=== PATIENT | male | born 1995 | race Caucasian/White ===

== ENCOUNTER 2017-07-22 00:40 | Emergency (ER) | payer BC ==
[~2017-07-22] VITALS: Ht 175.3 cm; Wt 102.9 kg
[~2017-07-22 00:40] MED LIST: LEVO88TA PO; LEVO88TA3 PO; MULTTAB58 PO
[2017-07-22 00:43] VITALS: TEMP 36.8; Ht 175.3 cm; Wt 102.9 kg
--- NOTE | 2017-07-22 01:11 | EMERGENCY ROOM VISIT NOTE ---
History Report prepared by Jordana: Sushila Armstrong Under the Supervision of: Dr. Ashley Lopez D.O. First contact with patient: 00:47 Chief Complaint: CARDIAC ASSESSMENT Stated Complaint: CHEST DISCOMFORT,ELEVATED RESTING HR,FATIGUE History of Present Illness The patient is a 21 year old male who presents to the Emergency Room with complaints of intermittent chest pain for two weeks. He describes the pain as more of a discomfort. He states the discomfort occurs after he eats and has been more often than normal over the last two weeks. He denies any abdominal pain. He notes his resting heart rate was 111 bpm this evening. He ate [employer] for dinner. He notes that he felt increased warmth and needed to go outside for fresh air. He denies any acid reflux, though he reports increased belching. He notes that he has had heartburn once at the beginning of the semester. He takes medication for hypothyroidism. He regularly follows up with an film composer. He has a history of hypertension. He notes that he has a family history of HLD and CAD. He notes that his diet has been really poor. He notes that he has increased stressed with school. He states that he has gained ten pounds this semester. Source of History: patient Onset: two weeks Position: chest Quality: other (discomfort) Timing: intermittent Associated Symptoms: No abdominal pain Note: He notes increased resting heart rate and belching. He notes increased stress and weight gain. Review of Systems See HPI for pertinent positives & negatives. A total of 10 systems reviewed and were otherwise negative. 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 (2) Hypothyroidism (3) Superficial abrasion Surgical Problems: (1) History of appendectomy (2) History of tonsillectomy (3) History of wisdom tooth extraction Family History Diabetes mellitus FH: hyperlipidemia Heart disease Hypertension Social History Smoking Status: Never Smoker Smokeless Tobacco Use: No Alcohol Use: occasionally (4/week) Drug Use: none Marital Status: single Housing Status: lives alone Occupation Status: employed, [employer] student Current/Historical Medications Scheduled Levothyroxine Sodium (Levothyroxine Sodium), 88 MCG PO QPM Allergies Coded Allergies: No Known Allergies (Unverified , 07/22/17) Physical Exam Vital Signs Date Time Temp Pulse Resp B/P (MAP) Pulse Ox O2 Delivery O2 Flow Rate FiO2 07/22/17 02:09 84 18 140/82 100 Room Air 07/22/17 01:01 99 Room Air 07/22/17 00:54 102 07/22/17 00:43 36.8 125 20 142/87 99 Room Air Physical Exam HEENT: Head - normocephalic and atraumatic Pupils are equal, round, and reactive to light. Extraocular eye muscles are intact, and sclera are anicteric. Nose - moist nasal mucosa without discharge. Mouth - moist buccal mucosa. Oropharynx is nonerythematous and there is no tonsillar exudate or edema noted. Neck: Supple; no JVD, nuchal rigidity, cervical lymphadenopathy. Heart: Regular rate and rhythm. There is a normal S1 and S2 with no murmurs, clicks, or gallops appreciated. Lungs: Clear to auscultation bilaterally with no wheezes, rales, or rhonchi. Abdomen: Soft, completely nontender, nondistended, with good bowel sounds. There are no palpable pulsatile masses or hepatosplenomegaly. There is no guarding, rigidity, or rebound noted. Extremities: No evidence of cyanosis, clubbing, or edema. There are easily palpable peripheral pulses. Skin: warm and dry with good turgor and no rashes. Medical Decision & Procedures ER Provider Diagnostic Interpretation: Radiology results as stated below per my review and interpretation: CHEST XR: Portable. No cardiomegaly. No pulmonary infiltrates. Laboratory Results 07/22/17 01:00 07/22/17 01:00 Test 07/22/17 01:00 Red Blood Count 4.99 M/uL (4.7-6.1) Mean Corpuscular Volume 84.0 fL (80-100) Mean Corpuscular Hemoglobin 30.7 pg (25-34) Mean Corpuscular Hemoglobin Concent 36.5 g/dl (32-36) RDW Standard Deviation 37.8 fL (36.4-46.3) RDW Coefficient of Variation 12.5 % (11.5-14.5) Mean Platelet Volume 9.4 fL (7.4-10.4) Anion Gap 4.0 mmol/L (3-11) Est Creatinine Clear Calc Drug Dose 115.1 ml/min Estimated GFR () 100.2 Estimated GFR (Non- 86.5 BUN/Creatinine Ratio 14.4 (10-20) Calcium Level 9.2 mg/dl (8.5-10.1) Total Bilirubin 0.4 mg/dl (0.2-1) Direct Bilirubin 0.1 mg/dl (0-0.2) Aspartate Amino Transf (AST/SGOT) 29 U/L (15-37) Alanine Aminotransferase (ALT/SGPT) 61 U/L (12-78) Alkaline Phosphatase 62 U/L (45-117) Troponin I < 0.015 ng/ml (0-0.045) Total Protein 7.7 gm/dl (6.4-8.2) Albumin 4.4 gm/dl (3.4-5.0) Lipase 193 U/L (73-393) Thyroid Stimulating Hormone (TSH) 5.630 uIu/ml (0.300-4.500) Free Thyroxine 0.97 ng/dl (0.80-1.60) Free Triiodothyronine 3.25 pg/ml (2.30-4.20) Laboratory results per my review. ECG Per My Interpretation Indication: chest pain Rate (beats per minute): 94 Rhythm: normal sinus Findings: nonspecific-ST abn, no acute ischemic change, no ectopy ED Course 0056: Past medical records reviewed. The patient was evaluated in room A3. A complete history and physical exam was performed. A 12-lead EKG was obtained. An IV lock was initiated and labs are drawn as above. Patient had a chest x- ray as described above. 0236: I reassessed the patient at this time. He is feeling better and resting comfortably. I discussed the results and treatment plan with the patient. I answered all pertaining questions that he had. He expressed understanding and verbalized agreement. The patient will be discharged home. Medical Decision The patient is a 21 year old male who presents to the ED with chest pain. Differential diagnosis includes gastritis, GERD, hyperthyroidism, esophagitis, anxiety, and cardiac ischemia. Lab results showed: No Leukocytosis. Stable H&H. TSH elevated at 5.6. Free T4 0.9, Free T3 3.2; Normal lipase. Normal LFTs. Normal renal function. Normal Glucose. Negative Troponin This is a 21-year-old male patient presents to the emergency department with discomfort in his chest after eating. This is been ongoing for some time. The episodes do not seem to be exercise-induced but always seem to occur after eating. The patient does take Synthroid. Because of the fatigue and weight gain, I checked the patient's TSH, free T3, and free T4. The TSH is elevated but the others are normal. I suggested the patient follow-up with his film composer to adjust his Synthroid dosing. The patient was encouraged to take a bland diet and use Zantac twice a day. If the chest discomfort persists, he will need to have close follow-up with his PCP. Medication Reconcilliation Current Medication List: was personally reviewed by me Blood Pressure Screening Patient's blood pressure: Elevated blood pressure Blood pressure disposition: Referred to PCP Impression Primary Impression: Atypical chest pain Additional Impression: Hypothyroidism Scribe Attestation The scribe's documentation has been prepared under my direction and personally reviewed by me in its entirety. I confirm that the note above accurately reflects all work, treatment, procedures, and medical decision making performed by me. Departure Information Dispostion Home / Self-Care Referrals No Doctor, Assigned (PCP) Forms IMPORTANT VISIT INFORMATION Patient Instructions ED Chest Pain Atypical Unkn Cause, ED Chest Pain NonCardiac, GERD, GERD Lifestyle Changes, My [facility] Additional Instructions Rest. Take a bland diet Zantac - 150mg every 12 hours Follow up with film composer - TSH 5.630 (normal free T3 and free T4) Return to the ER for any worsening symptoms Problem Qualifiers Additional Impression: Hypothyroidism Hypothyroidism type: unspecified Qualified Codes: E03.9 - Hypothyroidism, unspecified
[2017-07-22 01:17] LABS: HEMATOCRIT 41.9 % (42-52); HEMOGLOBIN 15.3 g/dL (14.0-18.0); MEAN CORPUSCULAR HEMOGLOBIN 30.7 pg (25-34); MEAN CORPUSCULAR HGB CONC 36.5 g/dl (32-36); MEAN PLATELET VOLUME 9.4 fL (7.4-10.4); PLATELET COUNT 252 K/uL (130-400); RED CELL DISTRIBUTION WIDTH CV 12.5 % (11.5-14.5); RED CELL DISTRIBUTION WIDTH SD 37.8 fL (36.4-46.3); WHITE BLOOD COUNT 10.77 K/uL (4.8-10.8)
[2017-07-22 01:44] LABS: ALBUMIN 4.4 gm/dl (3.4-5.0); ALT/SGPT 61 U/L (12-78); AST/SGOT 29 U/L (15-37); BLOOD UREA NITROGEN 17 mg/dl (7-18); CALCIUM 9.2 mg/dl (8.5-10.1); CARBON DIOXIDE 28 mmol/L (21-32); CREATININE 1.18 mg/dl (0.60-1.40); GLUCOSE 88 mg/dl (70-99); LIPASE 193 U/L (73-393); POTASSIUM 3.7 mmol/L (3.5-5.1); SODIUM 138 mmol/L (136-145)
[2017-07-22 01:55] LABS: ALKALINE PHOSPHATASE 62 U/L (45-117); TOTAL PROTEIN 7.7 gm/dl (6.4-8.2)
[2017-07-22 02:09] VITALS: BP 140/82; PULSE 84; O2SAT 100
--- NOTE | 2017-07-22 07:09 | DIAGNOSTIC IMAGING REPORT ---
SINGLE VIEW CHEST CLINICAL HISTORY: Atypical chest pain. FINDINGS: An AP, portable, upright chest radiograph is obtained. No prior studies are available for comparison at the time of dictation. The examination is mildly degraded by portable technique and patient rotation. The cardiomediastinal silhouette is unremarkable. The lungs and pleural spaces are clear. No pneumothorax is seen. The bony thorax is grossly intact. IMPRESSION: No active disease in the chest. Electronically signed by: Crescencio Nelson M.D. 07/22/2017 7:08 AM Dictated Date/Time: 07/22/2017 7:08 AM
== END 2017-07-22 02:55 | disposition home or self-care (01) ==
LOC: C.EDB 00:42 → C.EDA 02:55
DX: R07.89 Other chest pain (principal); E03.9 Hypothyroidism, unspecified; I10 Essential (primary) hypertension; K29.20 Alcoholic gastritis without bleeding; Z82.49 Family history of ischemic heart disease and other diseases of the circulatory system; Z79.899 Other long term (current) drug therapy